=== PATIENT | male | born 1990 | race Caucasian/White ===

== ENCOUNTER 2019-07-20 14:09 | Emergency (ER) | payer SELFPAY ==
[2019-07-20 14:24] VITALS: BP 123/88; PULSE 92; RESP 18; TEMP 36.4; O2SAT 100
[2019-07-20 14:39] LABS: Basophils Percent Auto 0.3 % (0.2-1.2); Hematocrit 44.2 % (42.0-52.0); Hemoglobin 15.8 g/dL (14.0-18.0); Immature Granulocyte Absolute 0.02 K/mm3 (0.00-0.031); Immature Granulocyte Percent A 0.2 % (0-0.5); Lymphocytes Absolute Auto 2.41 K/mm3 (0.9-3.2); Lymphocytes Percent Auto 24.3 % (18.3-44.2); Mean Corpuscular HGB Conc 35.7 g/dl (32-36); Mean Corpuscular Hemoglobin 31.6 pg (26-34); Mean Corpuscular Volume 88.4 fl (80-100); Mean Platelet Volume 10.3 fl (7.4-10.4); Monocytes Percent Auto 10.3 % (2.6-8.5); Neutrophils Absolute Auto 6.4 K/mm3 (1.3-6.7); Neutrophils Percent Auto 64.9 % (45.5-73.1); Platelet Count Result 259 k/mm3 (150-375); Red Cell Distribution Width 12.7 % (11.5-14.5); White Blood Count 9.9 K/mm3 (4.5-10.0)
[2019-07-20 14:42] LABS: Add Urine Microscopic? YES; Appearance Urine Clear (Clear); Bacteria Urine Trace /hpf; Bilirubin Urine Negative (Negative); Blood Urine Negative (Negative); Color Urine Yellow (Yellow); Glucose Urine UA Negative (Negative); Ketones Urine Trace mg/dL (Negative); Leukocyte Esterase Ur Negative LEU/UL (Negative); Mucus Urine Rare /lpf; Nitrate Urine Negative (Negative); Protein Urine 1+ mg/dL (Negative); RBC Urine 0-2 /hpf (0-2); WBC Urine 0-3 /hpf
[2019-07-20 14:43] LABS: Specific Grav Ur 1.033 (1.001-1.035)
[2019-07-20 14:51] LABS: Alanine Aminotransferase 19 U/L (4-50); Albumin Level 4.8 g/dL (3.5-5.1); Alkaline Phosphatase 97 U/L (38-126); Aspartate Amino Transferase 41 U/L (17-59); Bilirubin,Total 1.3 mg/dL (0.2-1.3); Blood Urea Nitrogen 22 mg/dL (9-20); Calcium 9.3 mg/dL (8.4-10.2); Carbon Dioxide 30 mmol/L (22-30); Chloride 102 mmol/L (98-107); Estimated CRCL calculation 102 ml/min; Estimated Glomerular Filt Rate > 60; Glucose 97 mg/dL (75-110); Potassium 3.5 mmol/L (3.4-5.0); Sodium 141 mmol/L (137-145)
[2019-07-20 14:57] LABS: Barbiturate Screen Urine Negative (Negative); Benzodiazepines Screen Urine Negative (Negative)
[2019-07-20 14:59] LABS: Ethanol < 10 mg/dL (<10)
[2019-07-20 15:00] LABS: Cannabinoid Screen Urine Positive (Negative); Cocaine Screen Urine Negative (Negative); Methadone Screen Urine Negative (Negative); Opiate Screen Urine Negative (Negative); Phencyclidine Screen Urine Negative (Negative)
[2019-07-20 15:21] LABS: Amphetamine Screen Urine Positive (Negative)
--- NOTE | 2019-07-20 17:28 | ED.PSYCH ---
HPI - Psych General Chief Complaint: Psychiatric Symptoms <Estevan Stokes MD - Last Filed: 07/21/19 15:40> Stated Complaint: requesting psych eval/meth abuse <Estevan Stokes MD - Last Filed: 07/21/19 15:40> Time Seen by Provider: 07/20/19 14:23 <Estevan Stokes MD - Last Filed: 07/21/19 15:40> History of Present Illness HPI Narrative: Patient is a 29-year-old male who presents the ER with complaints of suicidal ideation. He was escorted by police because he told the police that he was planning to lay himself by straight himself with pepper spray in the eyes. Patient is very erratic in his behavior and PD were concerned that he was manic. Patient has very pressured speech with some flight of ideas. Denies history of mental illness but reports he has been suicidal in the past months try to kill himself by drinking 2 pints of fireball and running into traffic. He does not have a plan for me at this time but reports that he is in fact suicidal. Denies any recent drug use or alcohol ingestion. <Estevan Stokes MD - Last Filed: 07/21/19 15:40> Related Data Home Medications: Home Medications Medication Instructions Recorded Confirmed No Home Medications 07/20/19 07/20/19 <Estevan Stokes MD - Last Filed: 07/21/19 15:40> Allergies/Adverse Reactions: Allergies Allergy/AdvReac Type Severity Reaction Status Date / Time No Known Allergies Allergy Verified 07/20/19 14:32 <Estevan Stokes MD - Last Filed: 07/21/19 15:40> Review of Systems Review of Systems: All systems reviewed & are unremarkable except as noted in HPI and below <Estevan Stokes MD - Last Filed: 07/21/19 15:40> Psychiatric: Psychiatric: Denies homicidal ideation and Reports suicidal ideation <Estevan Stokes MD - Last Filed: 07/21/19 15:40> PMFSH Past Medical History Medical History: Medical History (Updated 07/21/19 @ 15:40 by Estevan Stokes MD) Healthy adult male <Estevan Stokes MD - Last Filed: 07/21/19 15:40> Surgical History Surgical History: Surgical History (Updated 07/20/19 @ 17:31 by Estevan Stokes MD) No pertinent past surgical history <Estevan Stokes MD - Last Filed: 07/21/19 15:40> Social History Social History: Social History (Updated 07/20/19 @ 17:31 by Estevan Stokes MD) Substance use type: marijuana and amphetamines Gender identity (if verbalized by the patient): Male <Estevan Stokes MD - Last Filed: 07/21/19 15:40> Exam Narrative: Exam Narrative: GENERAL: Agitated-appearing, well-nourished, and in no acute distress. HEAD: Normocephalic, atraumatic. EYES: PERRL and EOMI. ENT: Mucous membranes moist. CHEST: Clear to auscultation. No respiratory distress. HEART: Regular rate and rhythm. Normal peripheral pulses. ABDOMEN: Soft, nontender, nondistended. EXTREMITIES: Normal range of motion. No edema. NEURO: Alert and oriented x3. PSYCH: Pressured speech, poor suicidal ideation but no homicidal ideation. No active plan. Patient will repeat words and rhyming patterns after certain questions but this is not constant. <Estevan Stokes MD - Last Filed: 07/21/19 15:40> Course Reevaluation(s) Reevaluation #1: Assumed care from Dr. Stokes at 7:20 PM. Patient is verbally abusive and actively psychotic. Dr. Stokes had ordered 2 of Ativan IM. He seems to be more agitated now. We will add 5 of Haldol IM. Psych came to evaluate him but he was too drug intoxicated to be evaluated at that. They said they would come back in 12 hours. History of screen had methamphetamines and marijuana. <Dory Ansari MD - Last Filed: 07/21/19 19:19> Date: 07/20/19 <Dory Ansari MD - Last Filed: 07/21/19 19:19> Time: 19:19 <Dory Ansari MD - Last Filed: 07/21/19 19:19> Reevaluation #2: The patient slept through the night, and I woke him up at 6:00 to see whether he wanted breakfast. He said he did. The
[2019-07-20] MEDS: LORAZEPAM INJ 2 MG/ML VIAL (19:15)
--- NOTE | 2019-07-20 19:15 | PC.NURSE ---
Upon arrival for shift, patient screaming and cursing at staff. bonding machine setter and security at patient's bedside. Patient was given medication by bonding machine setter.
--- NOTE | 2019-07-20 19:16 | PC.NURSE ---
Pt. was becoming verbally aggressive towards sitter stating close the door I aint not skeptical . RN informed Pt. that door had to stay open and he said Fuck you its shutting. I will get loud, angry . Pt. then started screaming and get laughing hysterically. Per EDP via verbal order readback give 2mg of Ativan IM. Ativan given in the R Detoid. While giving the medication Pt. stated Come on hurry up ya bitch. I ain't got time for this. You're going to hell you're so fucked, I know you, you bitch . Pt. still verbally aggressive.
[2019-07-20] MEDS: HALOPERIDOL LACTATE 5 MG/ML VIAL (19:26)
--- NOTE | 2019-07-20 19:35 | PC.NURSE ---
Patient resting on stretcher with security and sitter at bedside.
[2019-07-21 07:17] VITALS: BP 120/64; PULSE 64; RESP 14; TEMP 36.7; O2SAT 99
--- NOTE | 2019-07-21 08:37 | PC.NURSE ---
Called Crisis to have Pt. be evaluated. Let them know the Pt. is awake and ready to talk. They said they will dispatch someone out.
--- NOTE | 2019-07-21 10:20 | PC.NURSE ---
Crisis at bedside with Pt. Pt. is being rude and belligerent towards crisis.
--- NOTE | 2019-07-21 14:14 | PC.NURSE ---
[facility] called and stated that they do not have a bed for this Pt. today but if Pt. is still here tomorrow to call again. [facility] called and has accepted the Pt. Waiting for a call for a report.
[2019-07-21 15:05] VITALS: BP 117/70; PULSE 64; RESP 12; O2SAT 99
--- NOTE | 2019-07-21 17:07 | PC.NURSE ---
[facility] called ETA from 1700 to 1800 now.
[2019-07-21 18:33] VITALS: BP 116/70; PULSE 70; RESP 12; O2SAT 99
== END 2019-07-21 18:35 ==
PROVIDERS: Emergency Provider Emergency Medicine
DX: R45.851 Suicidal ideations (principal); F15.10 Other stimulant abuse, uncomplicated; F29 Unspecified psychosis not due to a substance or known physiological condition
CPT/HCPCS: 36415; 80053; 80307; 81001; 84443; 85025; 96372; 99285; J1630; J2060